=== PATIENT | male | born 1985 | race Caucasian/White ===

== ENCOUNTER → 2018-03-06 | Outpatient (CLI) | payer OTHER ==
--- NOTE | 2018-03-06 13:22 | US ---
EXAMINATION TYPE: US liver DATE OF EXAM: 03/06/2018 COMPARISON: NONE CLINICAL HISTORY: Elevated liver enzymes R74.8. Non alcoholic fatty liver, elevated liver enzymes EXAM MEASUREMENTS: Liver Length: 14.7 cm Gallbladder Wall: 0.2 cm CBD: 0.3 cm Right Kidney: 9.2 x 4.8 x 5.2 cm Pancreas: visualized portions appear hyperechoic, tail obscured by overlying midline bowel gas Liver: heterogeneous, increased echogenicity Gallbladder: wnl Evidence for sonographic Ramesh's sign: no CBD: visualized portions wnl, limited by overlying bowel gas Right Kidney: wnl Visualized liver is heterogeneously hyperechoic. No intrahepatic ductal dilatation is seen. Evaluatio n for focal masses is suboptimal due to the heterogeneity. IMPRESSION: Heterogeneous hyperechoic appearance of liver is suggestive of diffuse fatty infiltration .
== END | disposition home or self-care (01) ==
LOC: RADUSWWP 08:26
DX: R93.2 Abnormal findings on diagnostic imaging of liver and biliary tract (principal); R74.8 Abnormal levels of other serum enzymes
CPT/HCPCS: 76705

== ENCOUNTER → 2019-07-22 | Outpatient (CLI) | payer OTHER ==
--- NOTE | 2019-07-22 10:51 | US ---
EXAMINATION TYPE: US venous doppler duplex LE LT DATE OF EXAM: 07/22/2019 10:01 AM COMPARISON: NONE CLINICAL HISTORY: M79.609 Pain in unspecified limb. Pain behind left knee. SIDE PERFORMED: Left TECHNIQUE: The lower extremity deep venous system is examined utilizing real time linear array sonog anel with graded compression, doppler sonography and color-flow sonography. VESSELS IMAGED: External Iliac Vein (EIV) Common Femoral Vein Deep Femoral Vein Greater Saphenous Vein * Femoral Vein Popliteal Vein Small Saphenous Vein * Proximal Calf Veins (* superficial vessels) Left Leg: Negative for DVT IMPRESSION: 1. Left lower extremity ultrasound negative for deep venous thrombosis.
== END | disposition home or self-care (01) ==
LOC: RADUSWWP 09:37
PROVIDERS: ATTEND Family Medicine
DX: M79.609 Pain in unspecified limb (principal)

== ENCOUNTER 2020-04-17 15:07 | Emergency (ER) | payer OTHER ==
[2020-04-17 15:12] VITALS: RESP 18
--- NOTE | 2020-04-17 15:52 | ED ---
General Adult HPI - General Chief complaint: ENT Stated complaint: ENT Time Seen by Provider: 04/17/20 15:42 Source: patient, RN notes reviewed, old records reviewed Mode of arrival: ambulatory Limitations: no limitations - History of Present Illness Initial comments: 34-year-old male presenting with foreign body sensation in his throat. His been ongoing for the past several days. He states he is able to swallow but feels there is something caught in his throat. He denies significant pain. He denies nausea vomiting. Denies fever. He denies URI symptoms. Denies chest pain or dyspnea. - Related Data Allergies Allergy/AdvReac Type Severity Reaction Status Date / Time latex Allergy Rash/Hives Verified 04/17/20 15:08 Review of Systems ROS Statement: Those systems with pertinent positive or pertinent negative responses have been documented in the HPI. ROS Other: All systems not noted in ROS Statement are negative. Past Medical History Additional Past Medical History / Comment(s): chonic pain History of Any Multi-Drug Resistant Organisms: None Reported Past Surgical History: No Surgical Hx Reported Past Psychological History: Anxiety, Depression, PTSD Smoking Status: Current every day smoker Past Alcohol Use History: None Reported Past Drug Use History: Marijuana General Exam Limitations: no limitations General appearance: alert, in no apparent distress Head exam: Present: atraumatic, normocephalic Eye exam: Present: normal appearance, PERRL ENT exam: Present: mucous membranes moist. Absent: normal oropharynx (Oropharynx is erythematous, no tonsillar swelling or exudate, normal uvula) Neck exam: Present: normal inspection, full ROM, other (Patient is observed swallowing water, able to swallow normally.). Absent: tenderness, meningismus, lymphadenopathy Respiratory exam: Present: normal lung sounds bilaterally. Absent: respiratory distress, stridor Cardiovascular Exam: Present: regular rate, normal rhythm GI/Abdominal exam: Present: soft. Absent: distended, tenderness, guarding Neurological exam: Present: alert, oriented X3 Psychiatric exam: Present: normal affect, normal mood Skin exam: Present: warm, dry, intact. Absent: cyanosis, diaphoretic Course Vital Signs 04/17/20 15:09 Temperature 97.9 F Pulse Rate 95 Respiratory 18 Rate Blood Pressure 151/81 O2 Sat by Pulse 99 Oximetry Medical Decision Making - Medical Decision Making 34-year-old male with sensation of a ball in his throat. The visualized portion of the posterior oropharynx shows normal anatomy, no tonsillar swelling, no uvular swelling, there is mild diffuse erythema. There is no unilateral swelling. Due to the erythema I did send a rapid strep which is negative. Soft tissue of the neck shows a normal subglottic trachea, normal epiglottis, normal prevertebral soft tissue. Patient will monitor symptoms, is given ENT follow-up if his symptoms persist there is any new or worsening symptoms he will return to the emergency department. - Lab Data Lab Results 04/17/20 Range/Units 15:55 Group A Strep Rapid Negative (Negative) Disposition Clinical Impression: Sore throat Disposition: HOME SELF-CARE Condition: Good Instructions (If sedation given, give patient instructions): Pharyngitis (ED) Is patient prescribed a controlled substance at d/c from ED?: No Referrals: Lashae Harper MD [Primary Care Provider] - 1-2 days Manny Bolaños MD [STAFF PHYSICIAN] - 1-2 days Time of Disposition: 16:10
--- NOTE | 2020-04-17 16:03 | XR ---
EXAMINATION TYPE: XR soft tissue neck DATE OF EXAM: 04/17/2020 COMPARISON: NONE HISTORY: Difficulty breathing TECHNIQUE: 2 views FINDINGS: Epiglottis is normal. Subglottic trachea appears normal. Prevertebral soft tissues appear n ormal. Cervical vertebra have normal spacing and alignment. IMPRESSION: Normal cervical soft tissue exam.
[2020-04-17 16:27] VITALS: BP 137/91; PULSE 103; TEMP 98
== END 2020-04-17 16:40 | disposition home or self-care (01) ==
LOC: EC 15:07
DX: J02.9 Acute pharyngitis, unspecified (principal); F17.200 Nicotine dependence, unspecified, uncomplicated; Z91.040 Latex allergy status
CPT/HCPCS: 70360; 87081; 87430; 99284

== ENCOUNTER 2020-12-24 13:23 | Observation (INO) | payer OTHER ==
[2020-12-24 13:28] VITALS: BP 120/79; PULSE 101; RESP 96; TEMP 98.1
[2020-12-24] MEDS ORDERED: HYDROmorphone 1 MG/ML 1 ML SYRINGE IVP STA (14:01)
--- NOTE | 2020-12-24 14:06 | ED ---
General Adult HPI - General Chief complaint: Neuro Symptoms/Deficit Stated complaint: lower body numbness Time Seen by Provider: 12/24/20 13:49 Source: patient, RN notes reviewed Mode of arrival: ambulatory Limitations: no limitations - History of Present Illness Initial comments: Patient is a pleasant 35-year-old male presenting to the emergency department with left leg problems. Patient has had chronic left leg problems over the past 2 years. Patient has been diagnosed previously with sciatic problems. Patient states his left leg weakness has worsened today. Patient also has some paresthesias of both his legs. Patient did have some paresthesias of his penile area which has resolved. No right leg weakness. Patient also had some paresthesias of his left arm. Patient denies any left arm weakness. Onset of symptoms was 10 AM - Related Data Home Medications Medication Instructions Recorded Confirmed Fexofenadine HCl [Kaylie Allergy] 180 mg PO DAILY PRN 12/24/20 12/24/20 Fluticasone Propionate 1 spray EA NOSTRIL DAILY PRN 12/24/20 12/24/20 Gabapentin [Neurontin] 100 mg PO BID 12/24/20 12/24/20 buPROPion HCL [buPROPion HCL Xl] 150 mg PO HS 12/24/20 12/24/20 buPROPion XL [Wellbutrin Xl] 300 mg PO DAILY PRN 12/24/20 12/24/20 Allergies Allergy/AdvReac Type Severity Reaction Status Date / Time latex Allergy Rash/Hives Verified 12/24/20 13:24 Review of Systems ROS Statement: Those systems with pertinent positive or pertinent negative responses have been documented in the HPI. ROS Other: All systems not noted in ROS Statement are negative. Constitutional: Denies: fever Eyes: Denies: eye pain ENT: Denies: ear pain Respiratory: Denies: cough Cardiovascular: Denies: chest pain Endocrine: Denies: fatigue Gastrointestinal: Denies: abdominal pain Genitourinary: Reports: as per HPI Musculoskeletal: Reports: back pain (Left sciatic region) Skin: Denies: rash Neurological: Reports: as per HPI, paresthesias Past Medical History Additional Past Medical History / Comment(s): chonic pain History of Any Multi-Drug Resistant Organisms: None Reported Past Surgical History: No Surgical Hx Reported Past Psychological History: Anxiety, Depression, PTSD Smoking Status: Current every day smoker Past Alcohol Use History: None Reported Past Drug Use History: Marijuana General Exam Limitations: no limitations General appearance: alert, in no apparent distress Head exam: Present: normocephalic Eye exam: Present: normal appearance, PERRL, EOMI. Absent: nystagmus ENT exam: Present: normal oropharynx Neck exam: Present: normal inspection Respiratory exam: Present: normal lung sounds bilaterally Cardiovascular Exam: Present: regular rate, normal rhythm Expanded Peripheral pulses: 2+: Radial (R), Radial (L), Dorsalis Pedis (R), Dorsalis Pedis (L) GI/Abdominal exam: Present: soft. Absent: tenderness Rectal exam: Present: normal rectal tone exam: Present: normal inspection, other (Sensation intact. Cremasteric reflex intact.) Extremities exam: Present: normal inspection, full ROM Back exam: Present: tenderness (Left sacroiliac region) Neurological exam: Present: alert, oriented X3, CN II-XII intact Expanded Neurological exam: Present: protecting the airway Cranial nerves: EOM's Intact: Normal, Facial Sensation: Normal Cerebellar function: Finger to Nose: Normal Sensory exam: Upper Extremity Light Touch: Normal, Lower Extremity Light Touch: Normal Motor strength exam: RUE: 5, LUE: 5, RLE: 5, LLE: 4 Eye Response: (4) open spontaneously Motor Response: (6) obeys commands Verbal Response: (5) oriented Psychiatric exam: Present: normal affect, normal mood Skin exam: Present: normal color Course Vital Signs 12/24/20 13:24 Temperature 98.1 F Pulse Rate 101 H Respiratory 96 H Rate Blood Pressure 120/79 O2 Sat by Pulse 96 Oximetry - Reevaluation(s) Reevaluation #1: 12/24/20 14:44 Call from radiologist who question hyperdense right MCA versus artifact. He does recommend CTA. 12/24/20 15:11 Patient was not originally felt to be a TPA candidate secondary to symptoms not definitive of CVA. EKG Findings - EKG Comments: EKG Findings:: Normal sinus rhythm with a rate of 94. ID 134. QRS 86. QT 326. QTc 407. Normal axis. Normal QRS. Nonspecific ST-T. Medical Decision Making - Medical Decision Making Patient reevaluated and is feeling better. Patient and family updated on results and plan. Dr. Lara has been paged for admission. Case discussed with Dr. Lara, who will admit covering for Dr. Soler. Dr. Paz has been paged. - Lab Data Result diagrams: 12/24/20 14:20 12/24/20 14:20 Lab Results 12/24/20 12/24/20 12/24/20 Range/Units 14:20 14:20 14:20 WBC 7.7 (3.8-10.6) k/uL RBC 6.15 H (4.30-5.90) m/uL Hgb 18.2 H (13.0-17.5) gm/dL Hct 53.8 H (39.0-53.0) % MCV 87.5 (80.0-100.0) fL MCH 29.6 (25.0-35.0) pg MCHC 33.8 (31.0-37.0) g/dL RDW 13.6 (11.5-15.5) % Plt Count 273 (150-450) k/uL MPV 7.2 Neutrophils % 66 % Lymphocytes % 25 % Monocytes % 4 % Eosinophils % 4 % Basophils % 1 % Neutrophils # 5.1 (1.3-7.7) k/uL Lymphocytes # 1.9 (1.0-4.8) k/uL Monocytes # 0.3 (0-1.0) k/uL Eosinophils # 0.3 (0-0.7) k/uL Basophils # 0.0 (0-0.2) k/uL PT 10.1 (9.0-12.0) sec INR 0.9 (<1.2) APTT 23.4 (22.0-30.0) sec Sodium 139 (137-145) mmol/L Potassium 3.9 (3.5-5.1) mmol/L Chloride 107 (98-107) mmol/L Carbon Dioxide 21 L (22-30) mmol/L Anion Gap 11 mmol/L BUN 14 (9-20) mg/dL Creatinine 1.11 (0.66-1.25) mg/dL Est GFR (CKD-EPI)AfAm >90 (>60 ml/min/1.73 sqM) Est GFR (CKD-EPI)NonAf 85 (>60 ml/min/1.73 sqM) Glucose 142 H (74-99) mg/dL Calcium 9.9 (8.4-10.2) mg/dL Total Bilirubin 0.7 (0.2-1.3) mg/dL AST 31 (17-59) U/L ALT 42 (4-49) U/L Alkaline Phosphatase 112 (38-126) U/L Troponin I (0.000-0.034) ng/mL Total Protein 7.3 (6.3-8.2) g/dL Albumin 4.5 (3.5-5.0) g/dL 12/24/20 Range/Units 14:20 WBC (3.8-10.6) k/uL RBC (4.30-5.90) m/uL Hgb (13.0-17.5) gm/dL Hct (39.0-53.0) % MCV (80.0-100.0) fL MCH (25.0-35.0) pg MCHC (31.0-37.0) g/dL RDW (11.5-15.5) % Plt Count (150-450) k/uL MPV Neutrophils % % Lymphocytes % % Monocytes % % Eosinophils % % Basophils % % Neutrophils # (1.3-7.7) k/uL Lymphocytes # (1.0-4.8) k/uL Monocytes # (0-1.0) k/uL Eosinophils # (0-0.7) k/uL Basophils # (0-0.2) k/uL PT (9.0-12.0) sec INR (<1.2) APTT (22.0-30.0) sec Sodium (137-145) mmol/L Potassium (3.5-5.1) mmol/L Chloride (98-107) mmol/L Carbon Dioxide (22-30) mmol/L Anion Gap mmol/L BUN (9-20) mg/dL Creatinine (0.66-1.25) mg/dL Est GFR (CKD-EPI)AfAm (>60 ml/min/1.73 sqM) Est GFR (CKD-EPI)NonAf (>60 ml/min/1.73 sqM) Glucose (74-99) mg/dL Calcium (8.4-10.2) mg/dL Total Bilirubin (0.2-1.3) mg/dL AST (17-59) U/L ALT (4-49) U/L Alkaline Phosphatase (38-126) U/L Troponin I <0.012 (0.000-0.034) ng/mL Total Protein (6.3-8.2) g/dL Albumin (3.5-5.0) g/dL - Radiology Data Radiology results: report reviewed (CT lumbar spine shows large left paracentral disc herniation L5-S1 impinging S1 nerve root. CT brain shows hypodense appe arance of the vessels. This was as discussed with radiologist. CT angiogram of the head and neck shows no large occlusion. 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
[2020-12-24 14:33] LABS: Basophils % (A) 1 %; Eosinophils # (A) 0.3 k/uL (0-0.7); Eosinophils % (A) 4 %; HCT 53.8 % (39.0-53.0); HGB 18.2 gm/dL (13.0-17.5); Lymphocytes # (A) 1.9 k/uL (1.0-4.8); Lymphocytes % (A) 25 %; MCH 29.6 pg (25.0-35.0); MCHC 33.8 g/dL (31.0-37.0); MCV 87.5 fL (80.0-100.0); Mean Platelet Volume 7.2; Monocytes # (A) 0.3 k/uL (0-1.0); Monocytes % (A) 4 %; Neutrophils # (A) 5.1 k/uL (1.3-7.7); Neutrophils % (A) 66 %; Platelet Count 273 k/uL (150-450); RBC 6.15 m/uL (4.30-5.90); RDW 13.6 % (11.5-15.5); WBC 7.7 k/uL (3.8-10.6)
[2020-12-24 14:41] LABS: INR 0.9 (<1.2); Partial Thromboplastin Time 23.4 sec (22.0-30.0); Prothrombin Time 10.1 sec (9.0-12.0)
--- NOTE | 2020-12-24 14:41 | XR ---
EXAMINATION TYPE: XR chest 2V DATE OF EXAM: 12/24/2020 COMPARISON: NONE TECHNIQUE: PA and lateral views submitted. HISTORY: Altered mental status FINDINGS: The lungs are clear and there is no pneumothorax, pleural effusion, or focal pneumonia. Limited ins piration versus grossly normal with no overt failure. IMPRESSION: 1. No acute process.
[2020-12-24 14:42] LABS: ALT 42 U/L (4-49); AST 31 U/L (17-59); African American GFR (CKD) >90 (>60 ml/min/1.73 sqM); Albumin 4.5 g/dL (3.5-5.0); Alkaline Phosphatase 112 U/L (38-126); Anion Gap 11 mmol/L; Blood Urea Nitrogen 14 mg/dL (9-20); Calcium 9.9 mg/dL (8.4-10.2); Carbon Dioxide 21 mmol/L (22-30); Chloride 107 mmol/L (98-107); Glucose 142 mg/dL (74-99); Non-African American GFR(CKD) 85 (>60 ml/min/1.73 sqM); Potassium 3.9 mmol/L (3.5-5.1); Sodium 139 mmol/L (137-145); Total Bilirubin 0.7 mg/dL (0.2-1.3); Total Protein 7.3 g/dL (6.3-8.2)
--- NOTE | 2020-12-24 14:49 | CT ---
EXAMINATION TYPE: CT brain wo con DATE OF EXAM: 12/24/2020 COMPARISON: None HISTORY: 35-year-old male neurologic deficit, acute, stroke suspected. Bilateral hand numbness. TECHNIQUE: Examination was done in axial plane without intravenous contrast. Coronal and sagittal r econstructions performed. CT DLP: 1099.4 mGycm Automated exposure control for dose reduction was used. FINDINGS: There is no evidence of acute intracranial hemorrhage, acute ischemic changes, mass, mass-effect, or extra-axial fluid collection. There is no effacement of cerebral sulci or basal subarachnoid cister ns. There is no hydrocephalus. There is no midline shift. Dsouza-white matter distinction is preserv ed. Unable to exclude a hyperdense right MCA sign, axial image 19. To some extent, though, other vasculat ure appears somewhat dense. This could relate to dehydrated state. Rightward nasal septal deviation. Paranasal sinuses and mastoid air cells are well pneumatized. Orbit s and globes are intact. IMPRESSION: 1. Hyperdense appearance to the vessels. CT angiography can ensure patency and exclude thrombus, ana cially of the right MCA. Hyperdense intracranial vessels may also be seen in the setting of severe de hydration, elevated hematocrit, and polycythemia. Findings called to Dr. Guerrero in the ER at 2:45 PM. 2. Otherwise, no acute intracranial abnormality seen.
--- NOTE | 2020-12-24 14:53 | CT ---
EXAMINATION TYPE: CT lumbar spine wo con DATE OF EXAM: 12/24/2020 COMPARISON: None HISTORY: 35-year-old male Lower leg weakness. TECHNIQUE: Contiguous axial scanning of the lumbar spine without IV contrast. Coronal and sagittal re constructions performed. CT DLP: 1739.6 mGycm Automated exposure control for dose reduction was used. FINDINGS: Vertebral body heights are preserved and alignment is maintained. There is a very large left paracentral disc herniation at L5-S1. This causes moderate spinal canal st enosis and impinges the traversing left S1 nerve root. Mild disc bulge at L4-L5 causes minimal inferior foraminal narrowing on both sides. No prevertebral or paravertebral soft tissue abnormality seen. IMPRESSION: 1. POSITIVE FINDINGS WITH A LARGE LEFT PARACENTRAL DISC HERNIATION AT L5-S1 SEVERELY IMPINGING THE TR AVERSING LEFT S1 NERVE ROOT. 2. THIS ALSO CONTRIBUTES TO A MODERATE OVERALL SPINAL CANAL STENOSIS AT L5-S1.
--- NOTE | 2020-12-24 16:01 | CT ---
EXAMINATION TYPE: CT angio head neck DATE OF EXAM: 12/24/2020 COMPARISON: CT brain same day HISTORY: 35-year-old male Bilateral hand numbness. TECHNIQUE: Contiguous axial scanning of the head and neck performed with IV Contrast, patient injecte d with 65ml mL of Isovue 370. Coronal/sagittal MIP reconstructions performed. 3-D reconstructions gen erated on dedicated independent workstation. CT DLP: 734.5 mGycm Automated exposure control for dose reduction was used. FINDINGS: NECK: Conventional arch vessel branching anatomy. Patent bilateral vertebral arteries though the origin of the left vertebral artery is limited due to adjacent dense contrast bolus. The right common and internal carotid arteries are patent. The left common and internal carotid arteries are patent. NASCET criteria was utilized. BRAIN: The V4 segment left vertebral artery becomes slightly hypoplastic after the PICA takeoff. Both verteb ral and basilar arteries are patent as is the remainder of the posterior circulation. Bilateral pain, posterior communicating arteries. The internal carotid arteries are patent as is the remainder of the anterior circulation. No aneurysmal change is identified. Numerous additional cysts along the scalp measuring up to 1.4 cm. IMPRESSION: 1. NECK: WIDELY PATENT VERTEBRAL AND CAROTID ARTERIES OF THE NECK. 2. 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 NO LARGE VESSEL INTRACRA NIAL ARTERIAL OCCLUSION, SIGNIFICANT STENOSIS, OR ANEURYSMAL CHANGE IS SEEN. GIVEN THE INCREASED VASC ULAR DENSITY ON CT OF THE BRAIN, CORRELATE FOR ETIOLOGIES SUCH DEHYDRATION, INCREASED HEMATOCRIT, OR POLYCYTHEMIA.
[2020-12-24] MEDS ORDERED: NALOXONE 0.4 MG/ML 1 ML VIAL IV PRN (16:13)
[2020-12-24] MEDS ORDERED: HYDROmorphone 1 MG/ML 1 ML SYRINGE IVP PRN (16:13)
[2020-12-24] MEDS ORDERED: ACETAMINOPHEN TAB 325 MG TAB PO PRN (16:13)
[2020-12-24] MEDS ORDERED: HYDROmorphone 0.5 MG/0.5 ML SYRINGE IVP PRN (16:13)
[2020-12-24] MEDS ORDERED: SODIUM CHLORIDE 0.9% 1,000 ML IV SCH (16:15)
[2020-12-24] MEDS ORDERED: methylPREDNISolone SOD SUCCI 125 MG/2 ML VIAL IV STA (16:33)
[2020-12-24] MEDS ORDERED: methylPREDNISolone SOD SUCCI 125 MG/2 ML VIAL IV SCH (18:00)
[2020-12-24] MEDS ORDERED: SENNOSIDES 8.6 MG TAB PO PRN (19:09)
[2020-12-24] MEDS ORDERED: DEXAMETHASONE SOD PHOSPHATE 4 MG/ML 1 ML VIAL IV PRN (19:09)
[2020-12-24] MEDS ORDERED: ONDANSETRON 4 MG/2 ML VIAL IVP PRN (19:09)
[2020-12-24] MEDS ORDERED: CYCLOBENZAPRINE 10 MG TAB PO PRN (19:09)
[2020-12-24] MEDS ORDERED: ACETAMINOPHEN IV (For NPO) 1,000 MG in EMPTY BAG 1 BAG IVPB SCH (19:15)
[2020-12-24] MEDS ORDERED: DOCUSATE 100 MG CAP PO SCH (21:00)
[2020-12-24] MEDS ORDERED: GABAPENTIN 300 MG CAP PO SCH (22:00)
--- NOTE | 2020-12-25 06:49 | P.PN ---
Progress Note - Text Progress Note Date: 12/24/20 I reviewed the chart as well as the CT scan of this patient theres a large herniation on the left-hand side of L5 S one. I do recommend a stat MRI secondary to the patient complains of weakness as well as possible perineal symptoms. Once this is completed I will evaluate the patient. We will keep the patient NPO after midnight for possible surgical invention.
== END 2020-12-24 18:20 | disposition left against medical advice (07) ==
LOC: EC 13:23 → INTOOBSV 16:13 → 4SSUR 16:13 → UNDODISIN 18:20
PROVIDERS: ADMIT Internal Medicine; ATTEND Internal Medicine
DX: M51.27 Other intervertebral disc displacement, lumbosacral region (principal); Z53.29 Procedure and treatment not carried out because of patient's decision for other reasons; F41.9 Anxiety disorder, unspecified; F32.9 Major depressive disorder, single episode, unspecified; F43.10 Post-traumatic stress disorder, unspecified; F17.200 Nicotine dependence, unspecified, uncomplicated; G89.29 Other chronic pain; Z79.899 Other long term (current) drug therapy; Z91.040 Latex allergy status
CPT/HCPCS: 99285; 36415; 93005; 80053; 84484; 85025; 85610; 85730; 71046; 72131; 70496; 70450; 70498; G0378; Q9967

== ENCOUNTER 2021-02-18 06:46 | Day surgery (SDC) | payer OTHER ==
[2021-02-16 11:15] VITALS: BMI 23.7
[~2021-02-18 06:46] MED LIST: ACETAMINOPHEN TAB 500 MG TAB PO PRN; DEXAMETHASONE SOD PHOSPHATE 4 MG/ML 1 ML VIAL IV ONE; HEPARIN SODIUM,PORCINE/PF 5,000 UNIT/0.5 ML SYRINGE SQ PRN; LACTATED RINGERS 1,000 ML IV SCH; LIDOCAINE 1% (10MG/ML) FOR IV START INTRADERMA PRN; ONDANSETRON 4 MG/2 ML VIAL IVP ONE; metroNIDAZOLE-NS PMX 500 MG in SALINE 1 100ML.BAG IVPB PRN
[2021-02-18] MEDS ORDERED: HYDROmorphone 0.5 MG/0.5 ML SYRINGE IVP PRN (07:00)
[2021-02-18 07:45] VITALS: RESP 16
[2021-02-18] MEDS ORDERED: fentaNYL (PF) 50 MCG/ML 2 ML AMP ONE (07:51)
[2021-02-18] MEDS ORDERED: KETAMINE 10 MG/ML 20 ML VIAL ONE (07:51)
[2021-02-18] MEDS ORDERED: MIDAZOLAM 2 MG/2 ML VIAL ONE (07:51)
[2021-02-18] MEDS ORDERED: PROPOFOL 10 MG/ML 20 ML VIAL IV ONE (07:51)
[2021-02-18] MEDS ORDERED: LIDOCAINE 0.5%-EPI 1:200,000 50 ML VIAL SQ ONE (08:13)
[2021-02-18 08:35] VITALS: TEMP 97.1
--- NOTE | 2021-02-18 08:39 | P.GSHP ---
History of Present Illness H&P Date: 02/18/21 Chief Complaint: Pilonidal cyst This a 35-year-old male who has issues with chronic pilonidal cyst. He presents today for excision. Past Medical History Past Medical History: GERD/Reflux, Hyperlipidemia, Hypertension, Liver Disease Additional Past Medical History / Comment(s): Chonic back pain, "need surgery to L5-S1". "No medications for Hypertension or high cholestrol, just watching my diet", fatty liver. History of Any Multi-Drug Resistant Organisms: None Reported Past Surgical History: No Surgical Hx Reported Additional Past Surgical History / Comment(s): Dental surgery. Past Anesthesia/Blood Transfusion Reactions: Previous Problems w/ Anesthesia, Motion Sickness Additional Past Anesthesia/Blood Transfusion Reaction / Comment(s): Woke up during dental surgery. Past Psychological History: ADD/ADHD, Anxiety, Depression, PTSD Additional Psychological History / Comment(s): ADHD. Smoking Status: Current every day smoker Past Alcohol Use History: None Reported Additional Past Alcohol Use History / Comment(s): Has been smoking since age 10, 10-12 cigarettes per day. Past Drug Use History: Marijuana Additional Drug Use History / Comment(s): Medical Marijuana use for back pain when needed. Aware no use 24 hrs prior to procedure. - Past Family History Mother Family Medical History: No Reported History Medications and Allergies Home Medications Medication Instructions Recorded Confirmed Type Fexofenadine HCl [Kaylie Allergy] 180 mg PO HS 12/24/20 02/18/21 History buPROPion HCL [buPROPion HCL Xl] 150 mg PO HS 12/24/20 02/18/21 History buPROPion XL [Wellbutrin Xl] 300 mg PO DAILY PRN 12/24/20 02/18/21 History Fluticasone Propionate [Flonase 1 spray EA NOSTRIL DAILY PRN 02/16/21 02/18/21 History Allergy Relief] Vicodin (Unknown Dose) 0.5 tab PO BID 02/16/21 02/18/21 History oxyCODONE-APAP 7.5-325MG [Percocet 1 tab PO Q4-6H PRN 02/16/21 02/18/21 History 7.5-325 mg] Allergies Allergy/AdvReac Type Severity Reaction Status Date / Time latex Allergy Rash/Hives Verified 02/18/21 07:10 peanut Allergy Itching Verified 02/18/21 07:10 tomato Allergy Rash/Hives Verified 02/18/21 07:10 cherries Allergy Swelling Uncoded 02/18/21 07:10 red meat Allergy Itching Uncoded 02/18/21 07:10 Surgical - Exam Vital Signs Temp Pulse Resp BP Pulse Ox 98.0 F 93 16 126/86 96 02/18/21 07:26 02/18/21 07:26 02/18/21 07:26 02/18/21 07:26 02/18/21 07:26 - General well developed, well nourished, no distress - Eyes PERRL - ENT normal pinna - Neck no masses - Respiratory normal expansion - Cardiovascular Rhythm: regular - Abdomen Abdomen: soft, non tender - Integumentary Pilonidal cyst Assessment and Plan Assessment: Pilonidal cyst. We'll perform excision.
--- NOTE | 2021-02-18 08:41 | P.OP ---
Date of Procedure: 02/18/21 Preoperative Diagnosis: Pilonidal cyst Postoperative Diagnosis: Pilonidal cyst Procedure(s) Performed: Excision of pilonidal cyst Anesthesia: MAC, local Surgeon: Sebastien Myers Estimated Blood Loss (ml): 5 Pathology: other (Pilonidal cyst) Condition: stable Disposition: PACU Description of Procedure: Patient's placed in the operative table in the prone position. His pilonidal cyst was prepped and draped usual sterile fashion. Elliptical skin incision was made around analysis. And then using electrocautery the cyst excised. The specimens of pathology. The wound was checked for hemostasis and any bleeding points were coagulated with electrocautery. The wound was packed with wet-to-dry Kerlix. Patient top she will was sent to recovery room in stable condition.
[2021-02-18 10:29] VITALS: BP 117/84; PULSE 92
== END 2021-02-18 10:53 | disposition home health service (06) ==
LOC: OR 06:46
PROVIDERS: ATTEND Surgery
DX: L05.91 Pilonidal cyst without abscess (principal); E78.5 Hyperlipidemia, unspecified; F17.200 Nicotine dependence, unspecified, uncomplicated; F32.9 Major depressive disorder, single episode, unspecified; F41.9 Anxiety disorder, unspecified; I10 Essential (primary) hypertension; K21.9 Gastro-esophageal reflux disease without esophagitis; Z91.040 Latex allergy status
CPT/HCPCS: 11771; 88304; J2250; J1100; J0690; J2405; J3010; J2704; J1644

== ENCOUNTER 2022-06-15 09:34 | Emergency (ER) | payer OTHER ==
[2022-06-15 09:41] VITALS: RESP 18
[2022-06-15 10:19] LABS: Basophils # (A) 0.1 k/uL (0-0.2); Basophils % (A) 1 %; Eosinophils # (A) 0.2 k/uL (0-0.7); Eosinophils % (A) 4 %; HCT 50.1 % (39.0-53.0); HGB 16.9 gm/dL (13.0-17.5); Lymphocytes # (A) 1.6 k/uL (1.0-4.8); Lymphocytes % (A) 26 %; MCH 28.7 pg (25.0-35.0); MCHC 33.7 g/dL (31.0-37.0); MCV 85.4 fL (80.0-100.0); Mean Platelet Volume 6.9; Monocytes # (A) 0.4 k/uL (0-1.0); Monocytes % (A) 6 %; Neutrophils # (A) 3.7 k/uL (1.3-7.7); Neutrophils % (A) 62 %; Platelet Count 220 k/uL (150-450); RBC 5.86 m/uL (4.30-5.90); RDW 13.4 % (11.5-15.5); WBC 5.9 k/uL (3.8-10.6)
[2022-06-15 10:31] LABS: ALT 57 U/L (4-49); AST 31 U/L (17-59); African American GFR (CKD) >90 (>60 ml/min/1.73 sqM); Albumin 4.7 g/dL (3.5-5.0); Alkaline Phosphatase 105 U/L (38-126); Anion Gap 9 mmol/L; Blood Urea Nitrogen 14 mg/dL (9-20); Calcium 9.5 mg/dL (8.4-10.2); Carbon Dioxide 25 mmol/L (22-30); Chloride 108 mmol/L (98-107); Glucose 99 mg/dL (74-99); Lipase 186 U/L (23-300); Magnesium 2.1 mg/dL (1.6-2.3); Non-African American GFR(CKD) >90 (>60 ml/min/1.73 sqM); Potassium 4.6 mmol/L (3.5-5.1); Sodium 142 mmol/L (137-145); Total Bilirubin 0.7 mg/dL (0.2-1.3); Total Protein 7.9 g/dL (6.3-8.2)
--- NOTE | 2022-06-15 10:43 | XR ---
EXAMINATION TYPE: XR chest 2V DATE OF EXAM: 06/15/2022 COMPARISON: 12/24/2020 HISTORY: Chest pain TECHNIQUE: Frontal and lateral views of the chest are obtained. FINDINGS: The heart is not enlarged and there is no pulmonary vascular congestion. Lingular atelecta sis or scarring. Lungs otherwise clear. No pneumothorax. No pleural effusion. No acute osseous abnorm ality. IMPRESSION: Lingular atelectasis or scarring. Otherwise unremarkable chest.
[2022-06-15 10:47] LABS: INR 0.9 (<1.2)
[2022-06-15 10:48] LABS: Partial Thromboplastin Time 24.6 sec (22.0-30.0); Prothrombin Time 9.7 sec (9.0-12.0)
--- NOTE | 2022-06-15 13:03 | ED ---
Chest Pain HPI - General Chief Complaint: Chest Pain Stated Complaint: Chest Pain Time Seen by Provider: 06/15/22 09:50 Source: patient Mode of arrival: ambulatory Limitations: no limitations - History of Present Illness Initial Comments: 36-year-old male with past medical history of hypertension, hyperlipidemia who presents to the emergency department with chest pain. He reports that this morning he was awoken from sleep with a chest pain that was located in the left side of his chest. He describes it as a sharp and it lasted for approximately 2 minutes before spontaneously resolved. Did not take any medications. He has no previous history of cardiac disease. Does have a family history. Father had a CABG in his 50s. He has had no cardiac testing. He has no shortness of breath. No fevers or chills. No cough. No ripping or tearing sensation his back. Denies any numbness or tingling in his extremities. He has had no recurrence of the pain. No other alleviating, Perceptin or modifying factors - Related Data Home Medications Medication Instructions Recorded Confirmed Fexofenadine HCl [Kaylie Allergy] 180 mg PO HS 12/24/20 02/18/21 buPROPion HCL [buPROPion HCL Xl] 150 mg PO HS 12/24/20 02/18/21 buPROPion XL [Wellbutrin Xl] 300 mg PO DAILY PRN 12/24/20 02/18/21 Fluticasone Propionate [Flonase 1 spray EA NOSTRIL DAILY PRN 02/16/21 02/18/21 Allergy Relief] Vicodin (Unknown Dose) 0.5 tab PO BID 02/16/21 02/18/21 oxyCODONE-APAP 7.5-325MG [Percocet 1 tab PO Q4-6H PRN 02/16/21 02/18/21 7.5-325 mg] Previous Rx's Medication Instructions Recorded Acetaminophen Tab [Tylenol] 650 mg PO Q6H #30 tab 02/18/21 Docusate [Colace] 100 mg PO BID #20 cap 02/18/21 Ibuprofen [Motrin] 600 mg PO Q6HR PRN #40 tab 02/18/21 oxyCODONE HCL [OxyIR] 5 mg PO Q6H PRN 3 Days #10 tab 02/18/21 Allergies Allergy/AdvReac Type Severity Reaction Status Date / Time latex Allergy Rash/Hives Verified 06/15/22 09:41 peanut Allergy Itching Verified 06/15/22 09:41 tomato Allergy Rash/Hives Verified 06/15/22 09:41 cherries Allergy Swelling Uncoded 06/15/22 09:41 red meat Allergy Itching Uncoded 06/15/22 09:41 Review of Systems ROS Statement: Those systems with pertinent positive or pertinent negative responses have been documented in the HPI. ROS Other: All systems not noted in ROS Statement are negative. EKG Findings - EKG Comments: EKG Findings:: EKG demonstrates sinus rhythm with a rate of 75. AK interval 137. QRS 92. QTC of 387. No acute ST segment elevations or depressions Past Medical History Past Medical History: GERD/Reflux, Hyperlipidemia, Hypertension, Liver Disease Additional Past Medical History / Comment(s): Chonic back pain, "need surgery to L5-S1". "No medications for Hypertension or high cholestrol, just watching my diet", fatty liver. History of Any Multi-Drug Resistant Organisms: None Reported Past Surgical History: No Surgical Hx Reported Additional Past Surgical History / Comment(s): Dental surgery. microdisectomy, pylenolcyst Past Anesthesia/Blood Transfusion Reactions: Previous Problems w/ Anesthesia, Motion Sickness Additional Past Anesthesia/Blood Transfusion Reaction / Comment(s): Woke up during dental surgery. Past Psychological History: ADD/ADHD, Anxiety, Depression, PTSD Smoking Status: Current every day smoker Past Alcohol Use History: None Reported Past Drug Use History: Marijuana - Past Family History Mother Family Medical History: No Reported History General Exam Limitations: no limitations General appearance: alert, in no apparent distress Head exam: Present: atraumatic, normocephalic, normal inspection Eye exam: Present: normal appearance, PERRL, EOMI. Absent: scleral icterus, conjunctival injection, periorbital swelling ENT exam: Present: normal exam, mucous membranes moist Neck exam: Present: normal inspection. Absent: tenderness, meningismus, lymphadenopathy Respiratory exam: Present: normal lung sounds bilaterally. Absent: respiratory distress, wheezes, rales, rhonchi, stridor Cardiovascular Exam: Present: regular rate, normal rhythm, normal heart sounds. Absent: systolic murmur, diastolic murmur, rubs, gallop, clicks GI/Abdominal exam: Present: soft, normal bowel sounds. Absent: distended, tenderness, guarding, rebound, rigid Extremities exam: Present: normal inspection, full ROM, normal capillary refill. Absent: tenderness, pedal edema, joint swelling, calf tenderness Back exam: Present: normal inspection Neurological exam: Present: alert, oriented X3, CN II-XII intact Psychiatric exam: Present: normal affect, normal mood Skin exam: Present: warm, dry, intact, normal color. Absent: rash Course Vital Signs 06/15/22 06/15/22 06/15/22 09:36 10:00 13:14 Temperature 97.8 F 98.1 F Pulse Rate 98 84 77 Respiratory 18 18 Rate Blood Pressure 135/94 131/93 127/83 O2 Sat by Pulse 100 100 Oximetry Chest Pain MDM - MDM Was pt. sent in by a medical professional or institution ([facility] [place], SHEET CUTTER, urgent care, hospital, or jail...) When possible be specific @ -[No] Did you speak to anyone other than the patient for history (EMS, parent, family, police, friend...)? What history was obtained from this source @ -[No] Did you review nursing and triage notes (agree or disagree)? Why? @ -[I reviewed and agree with nursing and triage notes] Were old charts reviewed (outside hosp., previous admission, EMS record, old EKG, old radiological studies, urgent care reports/EKG's, jail records)? Report findings @ -[No old charts were reviewed] Differential Diagnosis (chest pain, altered mental status, abdominal pain women, abdominal pain men, vaginal bleeding, weakness, fever, dyspnea, syncope, headache, dizziness, GI bleed, back pain, seizure, CVA, palpatations, mental health)? pleurisy, pe, acs, costochondritis, pneumothorax, pericarditis EKG interpreted by me (3pts min.). yes X-rays interpreted by me (1pt min.). yes CT interpreted by me (1pt min.). @ -[None done] U/S interpreted by me (1pt. min.). @ -[None done] What testing was considered but not performed or refused? (CT, X-rays, U/S, labs)? Why? @ -[None] What meds were considered but not given or refused? Why? @ -[None] Did you discuss the management of the patient with other professionals (professionals i.e. , PA, SHEET CUTTER, lab, RT, psych nurse, social media coordinator, tax lawyer, teacher, chief mechanical officer, case liner)? Give summary @ -[No] Was smoking cessation discussed for >3mins.? @ -[No] Was critical care preformed (if so, how long)? @ -[No] Were there social determinants of health that impacted care today? How? (Homelessness, low income, unemployed, alcoholism, drug addiction, transportation, low edu. Level, literacy, decrease access to med. care, nursing home, rehab)? @ -[No] Was there de-escalation of care discussed even if they declined (Discuss DNR or withdrawal of care, Hospice)? DNR status @ -[No] What co-morbidities impacted this encounter? (DM, HTN, Smoking, COPD, CAD, Cancer, CVA, ARF, Chemo, Hep., AIDS, mental health diagnosis, sleep apnea, morbid obesity)? mood disorder Was patient admitted / discharged? Hospital course, mention meds given and route, prescriptions, significant lab abnormalities, going to OR and other pertinent info. Upon arrival patient was placed into room 8. Thorough history and physical exam was performed. IV access established laboratory studies were conducted. Troponin is negative. D-dimer is negative. Chest x-ray demonstrates streaky atelectasis. Results are discussed with the patient. His pain did start at 8 AM and therefore a second troponin is drawn at 11. Second troponin is negative. Results discussed patient. He will be discharged home at this time and instructed to follow up with his primary care doctor. Recommend echo, Holter monitoring and possible stress testing. Return to the emergency room and she have any new or worsening symptoms. Patient agreeable to treatment plan patient was discharged home in stable condition Undiagnosed new problem with uncertain prognosis? yes Drug Therapy requiring intensive monitoring for toxicity (Heparin, Nitro, Insulin, Cardizem)? @ -[No] Were any procedures done? @ -[No] Diagnosis/symptom? acute chest pain Acute, or Chronic, or Acute on Chronic? acute Uncomplicated (without systemic symptoms) or Complicated (systemic symptoms)? uncomplicated Side effects of treatment? @ -[No] Exacerbation, Progression, or Severe Exacerbation? @ -[No] Poses a threat to life or bodily function? How? (Chest pain, [place], [place], pneumonia, PE, COPD, DKA, ARF, appy, cholecystitis, CVA, Diverticulitis, Homicidal, Suicidal, threat to staff... and all critical care pts) yes Disposition Clinical Impression: Chest pain Disposition: HOME SELF-CARE Condition: Stable Instructions (If sedation given, give patient instructions): Chest Pain (ED) Additional Instructions: I recommend that you have an echo, stress test and Holter monitor study performed. This can be ordered by your primary care doctor. Return to the emergency room for any new or worsening symptoms Is patient prescribed a controlled substance at d/c from ED?: No Referrals: Lashae Harper MD [Primary Care Provider] - 1-2 days Time of Disposition: 13:03
[2022-06-15 13:15] VITALS: BP 127/83; PULSE 77; TEMP 98.1
== END 2022-06-15 13:15 | disposition home or self-care (01) ==
LOC: EC 09:34
DX: R07.89 Other chest pain (principal); E78.5 Hyperlipidemia, unspecified; F32.A Depression, unspecified; F41.9 Anxiety disorder, unspecified; K21.9 Gastro-esophageal reflux disease without esophagitis; I10 Essential (primary) hypertension; F17.200 Nicotine dependence, unspecified, uncomplicated; Z79.1 Long term (current) use of non-steroidal anti-inflammatories (NSAID); Z79.899 Other long term (current) drug therapy; Z91.040 Latex allergy status; Z91.018 Allergy to other foods; Z91.014 Allergy to mammalian meats
CPT/HCPCS: 36415; 71046; 80053; 83690; 83735; 84484; 85025; 85379; 85610; 85730; 93005; 99285

== ENCOUNTER 2023-12-24 14:16 | Emergency (ER) | payer OTHER ==
[2023-12-24] MEDS ORDERED: HYDROmorphone 1 MG/ML 1 ML SYRINGE ONE ×2 (16:19→17:48)
[2023-12-24] MEDS ORDERED: KETOROLAC 15 MG/ML 1 ML VIAL ONE (16:19)
--- NOTE | 2024-02-06 08:53 | XR ---
EXAMINATION TYPE: XR hand limited RT, XR wrist complete RT, XR hand complete RT DATE OF EXAM: 02/06/2024 8:41 AM CLINICAL INDICATION: Male, 38 years old with history of POST REDUCTION; PH[facility] COMPARISON: None TECHNIQUE: XR hand limited RT, XR wrist complete RT, XR hand complete RT Frontal, lateral and oblique views were obtained. Frontal and lateral views of the hand followed by complete radiographic views of the hand with fronta l lateral and oblique images. Frontal lateral oblique and navicular views of the wrist. FINDINGS/IMPRESSION: Posterior displacement/subluxation of the fifth digit carpometacarpal joint without evidence of fract ure. Subsequent imaging of the wrist demonstrate anatomic alignment of the fifth digit carpometacarpa l joint. [facility], , 02/06/2024 8:51 AM
== END 2023-12-24 15:00 | disposition home or self-care (01) ==
LOC: EC 14:16
DX: S63.266A Dislocation of metacarpophalangeal joint of right little finger, initial encounter (principal); X58.XXXA Exposure to other specified factors, initial encounter
CPT/HCPCS: 73110; 73120; 73130; 96372; 26605; 99283; J1170; J1885

== ENCOUNTER 2024-07-18 16:25 | Emergency (ER) | payer OTHER ==
--- NOTE | 2024-07-18 17:12 | ED ---
General Adult HPI - General Chief complaint: Fall Stated complaint: Fall-L Arm Injury Time Seen by Provider: 07/18/24 16:57 Source: patient Mode of arrival: ambulatory Limitations: no limitations - History of Present Illness Initial comments: Dictation was produced using HEAL[employer] dictation software. please excuse any grammatical, word or spelling errors. Chief Complaint: 38-year-old male presents to the emergency department with left arm pain left rib pain History of Present Illness: Patient is a 38-year-old male this morning he slipped on ice landed on his left side with his arm tucked under his body. Complains of left rib pain, left arm pain. States that most of his pain is in his left elbow. States that he landed directly on it. Denies any numbness tingling paresthesias to the hand. The ROS documented in this emergency department record has been reviewed and confirmed by me. Those systems with pertinent positive or negative responses have been documented in the HPI. All other systems are other negative and/or noncontributory. - Related Data Home Medications Medication Instructions Recorded Confirmed Fexofenadine HCl [Kaylie Allergy] 180 mg PO HS 12/24/20 02/18/21 buPROPion HCL [buPROPion HCL Xl] 150 mg PO HS 12/24/20 02/18/21 buPROPion XL [Wellbutrin Xl] 300 mg PO DAILY PRN 12/24/20 02/18/21 Fluticasone Propionate [Flonase 1 spray EA NOSTRIL DAILY PRN 02/16/21 02/18/21 Allergy Relief] Vicodin (Unknown Dose) 0.5 tab PO BID 02/16/21 02/18/21 oxyCODONE-APAP 7.5-325MG [Percocet 1 tab PO Q4-6H PRN 02/16/21 02/18/21 7.5-325 mg] Previous Rx's Medication Instructions Recorded Acetaminophen Tab [Tylenol] 650 mg PO Q6H #30 tab 02/18/21 Docusate [Colace] 100 mg PO BID #20 cap 02/18/21 Ibuprofen [Motrin] 600 mg PO Q6HR PRN #40 tab 02/18/21 oxyCODONE HCL [OxyIR] 5 mg PO Q6H PRN 3 Days #10 tab 10/01/21 Allergies Allergy/AdvReac Type Severity Reaction Status Date / Time latex Allergy Rash/Hives Verified 07/18/24 16:42 peanut Allergy Itching Verified 07/18/24 16:42 tomato Allergy Rash/Hives Verified 07/18/24 16:42 cherries Allergy Swelling Uncoded 07/18/24 16:42 Review of Systems ROS Statement: Those systems with pertinent positive or pertinent negative responses have been documented in the HPI. ROS Other: All systems not noted in ROS Statement are negative. Past Medical History Past Medical History: GERD/Reflux, Hyperlipidemia, Hypertension, Liver Disease Additional Past Medical History / Comment(s): Chonic back pain, "need surgery to L5-S1". "No medications for Hypertension or high cholestrol, just watching my diet", fatty liver. History of Any Multi-Drug Resistant Organisms: None Reported Past Surgical History: No Surgical Hx Reported Additional Past Surgical History / Comment(s): Dental surgery. microdisectomy, pylenolcyst Past Anesthesia/Blood Transfusion Reactions: Previous Problems w/ Anesthesia, Motion Sickness Additional Past Anesthesia/Blood Transfusion Reaction / Comment(s): Woke up during dental surgery. Past Psychological History: ADD/ADHD, Anxiety, Depression, PTSD Smoking Status: Current every day smoker Past Alcohol Use History: None Reported Past Drug Use History: Marijuana - Past Family History Mother Family Medical History: No Reported History General Exam - General Exam Comments Initial Comments: General: Well-appearing, nontoxic, acute distress secondary to pain Head: Normocephalic, atraumatic Eyes: PERRLA, EOMI ENT: Airway patent Chest: Nonlabored breathing Skin: No visual rash, normal skin tone Neuro: Alert and oriented 3 Musculoskeletal: No gross abnormalities Left upper extremity: Tenderness to the left elbow, no gross deformities, passive range of movement intact Limitations: no limitations Course Vital Signs 07/18/24 07/18/24 16:38 19:06 Temperature 98.2 F 98.3 F Pulse Rate 91 83 Respiratory 20 19 Rate Blood Pressure 130/97 136/92 O2 Sat by Pulse 96 97 Oximetry Medical Decision Making - Medical Decision Making Was pt. sent in by a medical professional or institution (, PA, SENIOR RELATIONSHIP MANAGER, urgent care, hospital, or shelter...) When possible be specific @ -No Did you speak to anyone other than the patient for history (EMS, parent, family, police, friend...)? What history was obtained from this source @ -No Did you review nursing and triage notes (agree or disagree)? Why? @ -I reviewed and agree with nursing and triage notes Were old charts reviewed (outside hosp., previous admission, EMS record, old EKG, old radiological studies, urgent care reports/EKG's, shelter records)? Report findings @ -No old charts were reviewed Differential Diagnosis (chest pain, altered mental status, abdominal pain women, abdominal pain men, vaginal bleeding, musculoskeletal, weakness, fever, dyspnea, syncope, headache, dizziness, GI bleed, back pain, seizure, CVA, palpa tations, mental health)? @ -Shoulder dislocation, elbow fracture, elbow dislocation EKG interpreted by me (3pts min.). @ -None done X-rays interpreted by me (1pt min.). @ -X-ray, elbow x-ray, shoulder x-ray and wrist x-ray shows no acute processes. CT interpreted by me (1pt min.). @ -None done U/S interpreted by me (1pt. min.). @ -None done What testing was considered but not performed or refused? (CT, X-rays, U/S, labs)? Why? @ -None What meds were considered but not given or refused? Why? @ -None Was smoking cessation discussed for >3mins.? @ -No Were there social determinants of health that impacted care today? How? (Homelessness, low income, unemployed, alcoholism, drug addiction, transportation, low edu. Level, literacy, decrease access to med. care, skilled nursing, rehab)? @ -No Was there de-escalation of care discussed even if they declined (Discuss DNR or withdrawal of care, Hospice)? DNR status @ -No What co-morbidities impacted this encounter? (DM, HTN, Smoking, COPD, CAD, C ancer, CVA, ARF, Chemo, Hep., AIDS, mental health diagnosis, sleep apnea, morbid obesity)? @ -None Was patient admitted / discharged? Hospital course, mention meds given and route, prescriptions, significant lab abnormalities, going to OR and other pertinent info. @ -38-year-old male presents emergency department with left arm arm and left chest pain. Vital signs stable. Passive range of movement intact. X-rays unremarkable for any acute processes. Patient will be admitted clinical presentation consistent with arm contusion. Did you discuss the management of the patient with other professionals (professionals i.e. , PA, SENIOR RELATIONSHIP MANAGER, lab, RT, psych nurse, social media coordinator, glove machine operator, teacher, security vehicle patrol officer, vocational case manager)? Give summary @ -No Was critical care preformed (if so, how long)? @ -No Undiagnosed new problem with uncertain prognosis? @ -No Drug Therapy requiring intensive monitoring for toxicity (Heparin, Nitro, Insulin, Cardizem)? @ -No Were any procedures done? @ -No Diagnosis/symptom? Acute, or Chronic, or Acute on Chronic? Uncomplicated (without systemic symptoms) or Complicated (systemic symptoms)? @ -Contusion of the left arm Side effects of treatment? @ -No Exacerbation, Progression, or Severe Exacerbation? @ -No Poses a threat to life or bodily function? How? (Chest pain, [place], [place], pneumonia, PE, COPD, DKA, ARF, appy, cholecystitis, CVA, Diverticulitis, Homicidal, Suicidal, threat to staff... and all critical care pts) @ -No Disposition Clinical Impression: Arm contusion Disposition: HOME SELF-CARE Condition: Good Instructions (If sedation given, give patient instructions): Fall Prevention (ED) Is patient prescribed a controlled substance at d/c from ED?: No Referrals: Lashae Harper MD [Primary Care Provider] - 1-2 days Time of Disposition: 19:59
[2024-07-18] MEDS: MORPHINE SULFATE 4 MG/ML SYRINGE IM STA (17:23)
--- NOTE | 2024-07-18 19:05 | XR ---
EXAMINATION TYPE: XR chest 2V DATE OF EXAM: 07/18/2024 6:42 PM COMPARISON: Chest radiographs from 06/15/2022 CLINICAL INDICATION: Male, 38 years old with history of fall, arm and left rib pain; TECHNIQUE: XR chest 2V Frontal and lateral views of the chest. FINDINGS: Lungs/Pleura: There is no evidence of pleural effusion, focal consolidation, or pneumothorax. Pulmonary vascularity: Unremarkable. Heart/mediastinum: Cardiomediastinal silhouette is unremarkable. Musculoskeletal: No acute osseous pathology. IMPRESSION: No acute cardiopulmonary disease/process. [facility], , 07/18/2024 7:03 PM
--- NOTE | 2024-07-18 19:07 | XR ---
EXAMINATION TYPE: XR elbow limited LT DATE OF EXAM: 07/18/2024 6:42 PM COMPARISON: None CLINICAL INDICATION: Male, 38 years old with history of fall, arm and left rib pain; PHH, pain TECHNIQUE: XR elbow limited LT; elbow was examined in AP, lateral, and oblique projections. FINDINGS: No evidence of any acute osseous pathology or joint dislocation. No evidence of joint effu lolis is present. Mild soft tissue swelling to the posterior elbow. IMPRESSION: 1. No evidence of acute fracture. 2. Soft tissue swelling posterior elbow without evidence for fracture. [facility], , 07/18/2024 7:05 PM
--- NOTE | 2024-07-18 19:07 | XR ---
EXAMINATION TYPE: XR wrist complete LT DATE OF EXAM: 07/18/2024 6:42 PM COMPARISON: None CLINICAL INDICATION: Male, 38 years old with history of fall, arm and left rib pain; PHH, pain TECHNIQUE: XR wrist complete LT; examined in the Frontal, navicular, lateral, and oblique. FINDINGS: No acute osseous pathology, joint dislocation, or joint effusion. No evidence of any soft tissue swelling is seen. IMPRESSION: No acute osseous pathology. [facility], , 07/18/2024 7:05 PM
--- NOTE | 2024-07-18 19:08 | XR ---
EXAMINATION TYPE: XR shoulder complete LT DATE OF EXAM: 07/18/2024 6:42 PM COMPARISON: None CLINICAL INDICATION: Male, 38 years old with history of fall, arm and left rib pain; PHH, pain TECHNIQUE: XR shoulder complete LT; examined in AP, internally rotated and scapular Y projections. FINDINGS: No evidence of acute osseous pathology, joint dislocation, or soft tissue swelling. The remaining po rtions of the visualized chest are unremarkable. Mild degeneration changes of the acromion and dista l clavicle. IMPRESSION: No acute osseous pathology. [facility], , 07/18/2024 7:05 PM
[2024-07-18 19:16] VITALS: RESP 19
[2024-07-18] MEDS: ACET/COD 300 MG/30 MG STARTER PACK 6 TAB BTL PO STA (20:17)
[2024-07-18 20:20] VITALS: BP 126/88; PULSE 75; TEMP 98.5
== END 2024-07-18 20:21 | disposition home or self-care (01) ==
LOC: EC 16:25
DX: S40.022A Contusion of left upper arm, initial encounter (principal); F17.200 Nicotine dependence, unspecified, uncomplicated; Z91.040 Latex allergy status; Z91.010 Allergy to peanuts; Z91.018 Allergy to other foods; W00.0XXA Fall on same level due to ice and snow, initial encounter
CPT/HCPCS: 73030; 73070; 73110; 71046; 99284; 96372; J2270